=== PATIENT | male | born 1955 | race Caucasian/White ===

== ENCOUNTER 2016-10-08 15:04 | Emergency (ER) | payer OTHER ==
[~2016-10-08] VITALS: Ht 177.8 cm; Wt 81.6 kg
[~2016-10-08 15:04] MED LIST: ASPI81CH43 PO; DOCU100T15 PO; FURO20TA3 PO; POTA10TA34 PO
[2016-10-08 15:20] VITALS: BP 124/80
[2016-10-08 16:41] LABS: Albumin 2.2 g/dL (3.4-5.0); Anion Gap 13 (5-15); Blood Urea Nitrogen 9 mg/dL (7-18); Calcium 7.9 mg/dL (8.5-10.1); Carbon Dioxide 24 mmol/L (21-32); Chloride 98 mmol/L (98-107); Glucose 104 mg/dL (74-106); Hemoglobin 12.9 g/dL (13.5-17.5); Mean Corpuscular Hemoglobin 34.4 pg (28.0-32.0); Mean Platelet Volume 7.8 fL (7.4-10.4); Platelet Count (auto) 480 10^3/uL (140-450); Potassium 3.7 mmol/L (3.5-5.1); Red Cell Distribution Width 16.5 % (11.6-16.0); Sodium 135 mmol/L (136-145); White Blood Cell 14.9 10^3/uL (4.4-10.8)
[2016-10-08 16:43] LABS: Aspartate Aminotransferase 170 U/L (15-37); BUN/Creatinine Ratio 16.7; GFR African American 200 mL/min; GFR Non-African American 165 mL/min
[2016-10-08 16:57] LABS: Alkaline Phosphatase 994 U/L (45-117); Total Protein 6.5 g/dL (6.4-8.2)
[2016-10-08 16:58] LABS: Metamyelocytes % 0; Myelocytes % 0; Promyelocytes % 0; Reactive Lymphocytes 0
[2016-10-08 18:01] LABS: Anisocytosis Moderate; Macrocytosis Slight; Platelet Estimate Adequate; Stomatocytes Few
== END 2016-10-09 | disposition left against medical advice (07) ==
LOC: EDBD 15:04 → ER 15:06
DX: R53.1 Weakness (principal); Z53.21 Procedure and treatment not carried out due to patient leaving prior to being seen by health care provider
CPT/HCPCS: 36415; 80053; 84484; 85007; 85027; 93005

== ENCOUNTER → 2016-10-11 | Outpatient (CLI) | payer OTHER ==
[2016-10-11 08:48] LABS: INR 1.1 (0.9-1.15)
== END | disposition home or self-care (01) ==
LOC: XYW 07:59
PROVIDERS: ATTEND Family Medicine
DX: R18.8 Other ascites (principal)
CPT/HCPCS: 10022; 36415; 76705; 76942; 85610; C1729

== ENCOUNTER 2016-10-25 07:26 | Outpatient (CLI) | payer OTHER | END 2016-10-25 09:49 | disposition home or self-care (01) | LOC: US 07:26 | PROVIDERS: ATTEND Family Medicine | DX: R07.9 Chest pain, unspecified (principal) | CPT/HCPCS: 10022; 76942; C1729 ==